=== PATIENT | male | born 1925 | race Caucasian/White ===

== ENCOUNTER → 2016-07-31 | Day surgery (SDC) | payer OTHER ==
[2016-07-30 15:14] VITALS: Ht 188 cm; Wt 78.6 kg
[~2016-07-31] VITALS: Ht 188 cm; Wt 78.6 kg
[~2016-07-31] MED LIST: ALLO1TAB51 PO; CALC500C73 PO; ETOMIDATE 2 MG/ML 20 ML VIAL IV ONE; FERR325T51 PO; FINA5TAB PO; FLM4 PO; FRS/40 PO; HYDR-4715 PO; LIDOCAINE HCL 2% 2 ML VIAL (20MG/ML) ONE; PANT40TA PO; PROP40TA5 PO; PROPOFOL IV EMULSION 10 MG/ML 20 ML VIAL IV ONE; SODIUM CHLORIDE 0.9% 500ML 500 ML IV ONE
--- NOTE | 2016-07-31 15:16 | Endo History and Physical ---
History & Physical Date of Service: Jul 31, 2016. Chief Complaint: anemia Referring Physician: Dr. 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) Hx Urinary Tract Surgery: No Family History None Social History Smoking Status: Never Smoker Hx Substance Use: No Hx Alcohol Use: No Allergies Coded Allergies: Adhesives (Verified Allergy, Intermediate, RASH WITH TAPE OTHER THAN PAPER , 07/30/16) WITH THE USE OF ANY TAPE OTHER THAN PAPER Statins (Verified Allergy, Unknown, Unknown, 07/30/16) Current Medications Reported Home Medications Medications Dose Route/Sig Max Daily Dose Days Date Category Propranolol Hcl 40 Mg Tab 1 Tab PO QAM 30 07/30/16 Reported Tamsulosin HCl 0.4 Mg Cap 1 Cap PO QAM 07/30/16 Reported Protonix (Pantoprazole Sodium) 40 Mg Tab 40 Mg PO QAM 07/30/16 Reported Apresoline (Hydralazine Hcl) 10 Mg Tab 20 Mg PO TID 07/30/16 Reported Lasix (Furosemide) 40 Mg Tab 40 Mg PO BID 07/30/16 Reported Proscar (Finasteride) 5 Mg Tab 5 Mg PO DAILY AFTERNOON 07/30/16 Reported Calcium (Calcium Carbonate) 500 Mg Chw 1 Tab PO QAM 07/30/16 Reported Iron Supplement (Ferrous Sulfate) 325 Mg Tab 325 Mg PO BID 30 12/06/15 Reported Allopurinol 100 Mg Tab 100 Mg PO QAM 10/08/14 Reported Vital Signs Weight (Kilograms): 78.64 Height (Feet): 6 Height (Inches): 2 Date Time Temp Pulse Resp B/P Pulse Ox O2 Delivery O2 Flow Rate FiO2 07/31/16 15:04 36.4 76 18 160/82 99 Room Air Physical Exam AAO x3 Nl s1s2 Lungs CTA Abd soft NT/ND + BS - CCE Assessment and Plan EGD/colon today
--- NOTE | 2016-07-31 16:23 | GI REPORT ---
Procedure Date: 07/31/2016 3:19 PM Procedure: Colonoscopy Indications: Hematochezia, Melena Medicines: Propofol per Anesthesia Complications: No immediate complications. Estimated blood loss: None. Estimated Blood Loss: Estimated blood loss: none. Procedure: Pre-Anesthesia Assessment: - Prior to the procedure, a History and Physical was performed, and patient medications and allergies were reviewed. The patient's tolerance of previous anesthesia was also reviewed. The risks and benefits of the procedure and the sedation options and risks were discussed with the patient. All questions were answered, and informed consent was obtained. Prior Anticoagulants: The patient has taken no previous anticoagulant or antiplatelet agents. ASA Grade Assessment: III - A patient with severe systemic disease. After reviewing the risks and benefits, the patient was deemed in satisfactory condition to undergo the procedure. After I obtained informed consent, the scope was passed under direct vision. Throughout the procedure, the patient's blood pressure, pulse, and oxygen saturations were monitored continuously. The scope was introduced through the anus and advanced to the terminal ileum, with identification of the appendiceal orifice and IC valve. The colonoscopy was performed without difficulty. The patient tolerated the procedure well. The quality of the bowel preparation was fair. Findings: The perianal and digital rectal examinations were normal. Pertinent negatives include normal sphincter tone, no palpable rectal lesions and no anal lesion or abnormality was detected. Many small-mouthed diverticula were found in the sigmoid colon. The terminal ileum appeared normal. The retroflexed view of the distal rectum and anal verge was normal and showed no anal or rectal abnormalities. Impression: - Diverticulosis in the sigmoid colon. - The examined portion of the ileum was normal. - The distal rectum and anal verge are normal on retroflexion view. - No specimens collected. Recommendation: - Discharge patient to home (ambulatory). - Resume previous diet. MD Yosef Melendez MD 07/31/2016 4:22:20 PM This report has been signed electronically. Note Initiated On: 07/31/2016 3:19 PM
--- NOTE | 2016-07-31 16:30 | Anesthesiology Progress Note ---
Anesthesia Post Op Note Date & Time Jul 31, 2016 at 16:29 Vital Signs Pain Intensity: 0 Vital Signs Past 12 Hours Date Time Temp Pulse Resp B/P Pulse Ox O2 Delivery O2 Flow Rate FiO2 07/31/16 16:10 73 20 139/63 99 Room Air 07/31/16 15:04 36.4 76 18 160/82 99 Room Air Notes Mental Status: alert / awake / arousable Nausea / Vomiting: adequately controlled Pain: adequately controlled Airway Patency, RR, SpO2: stable & adequate BP & HR: stable & adequate Hydration State: stable & adequate Anesthetic Complications: no major complications apparent
[2016-07-31 16:40] VITALS: BP 155/71; PULSE 81; O2SAT 99
--- NOTE | 2016-07-31 16:41 | Discharge Instructions ---
Endoscopy Patient Instructions Date / Procedure(s) Performed Jul 31, 2016. Colonoscopy, EGD Allergy Information Coded Allergies: Adhesives (Verified Allergy, Intermediate, RASH WITH TAPE OTHER THAN PAPER , 07/30/16) WITH THE USE OF ANY TAPE OTHER THAN PAPER Statins (Verified Allergy, Unknown, Unknown, 07/30/16) Discharge Date / Findings Jul 31, 2016. colon diverticulosis EGD with esophagitis/Hiatal hernia. SSBE and gastritis/duodenitis Medication Instructions Stopped Medication(s): stopped calcium Restart Stopped Medication(s): Reported Home Medications Medications Dose Route/Sig Max Daily Dose Days Date Category Propranolol Hcl 40 Mg Tab 1 Tab PO QAM 30 07/30/16 Reported Tamsulosin HCl 0.4 Mg Cap 1 Cap PO QAM 07/30/16 Reported Protonix (Pantoprazole Sodium) 40 Mg Tab 40 Mg PO QAM 07/30/16 Reported Apresoline (Hydralazine Hcl) 10 Mg Tab 20 Mg PO TID 07/30/16 Reported Lasix (Furosemide) 40 Mg Tab 40 Mg PO BID 07/30/16 Reported Proscar (Finasteride) 5 Mg Tab 5 Mg PO DAILY AFTERNOON 07/30/16 Reported Calcium (Calcium Carbonate) 500 Mg Chw 1 Tab PO QAM 07/30/16 Reported Iron Supplement (Ferrous Sulfate) 325 Mg Tab 325 Mg PO BID 30 12/06/15 Reported Allopurinol 100 Mg Tab 100 Mg PO QAM 10/08/14 Reported Reported Home Medications Medications Dose Route/Sig Max Daily Dose Days Date Category Propranolol Hcl 40 Mg Tab 1 Tab PO QAM 30 07/30/16 Reported Tamsulosin HCl 0.4 Mg Cap 1 Cap PO QAM 07/30/16 Reported Protonix (Pantoprazole Sodium) 40 Mg Tab 40 Mg PO QAM 07/30/16 Reported Apresoline (Hydralazine Hcl) 10 Mg Tab 20 Mg PO TID 07/30/16 Reported Lasix (Furosemide) 40 Mg Tab 40 Mg PO BID 07/30/16 Reported Proscar (Finasteride) 5 Mg Tab 5 Mg PO DAILY AFTERNOON 07/30/16 Reported Calcium (Calcium Carbonate) 500 Mg Chw 1 Tab PO QAM 07/30/16 Reported Iron Supplement (Ferrous Sulfate) 325 Mg Tab 325 Mg PO BID 30 12/06/15 Reported Allopurinol 100 Mg Tab 100 Mg PO QAM 10/08/14 Reported Prilosec 40mg daily 1/2 hr AC Provider Instructions Activity Restrictions - No exercising or heavy lifting for 24 hours. - Do not drink alcohol the day of the procedure. - Do not drive a car or operate machinery until the day after the procedure. - Do not make any important decisions or sign important papers in 24 hours after the procedure. Following Day: - Return to full activity which may include returning to work/school. Diet Start your diet with liquids and light foods (jello, soup, juice, toast). Then eat your usual diet if not nauseated. Treatment For Common After Affects For mild abdominal pain, bloating, or excessive gas: - Rest - Eat lightly - Lie on right side Follow-Up Information Follow-up with Dr. Youngblood as scheduled Anesthesia Information What You Should Know You have had a procedure that required some medicine to reduce anxiety and discomfort. This treatment is called moderate sedation. After receiving the treatment, you may be sleepy, but you will be able to breathe on your own. The effects of the treatment may last for several hours. Follow these instructions along with Activity/Diet recommendations noted above: * Do NOT do anything where dizziness or clumsiness would be dangerous. * Rest quietly at home today, then you can be up and about tomorrow. * Have a responsible person stay with you the rest of today. * You may have had an I.V. today. If so, you may take the dressing off later today. Recommendations Call your doctor if: * Trouble breathing * Continuous vomiting for more than 24 hours * Temperature above 101 degrees * Severe abdominal pain or bloating * Pain not relieved by pain medicine ordered * There is increased drainage or redness from any incision * A large amount of rectal bleeding greater than 2-3 tablespoons. (If you had a polyp/s removed or have hemorrhoids, a small amount of blood - from the rectum is to be expected.) * You have any unanswered questions or concerns. IN THE EVENT OF A SERIOUS EMERGENCY, GO TO THE NEAREST EMERGENCY ROOM Your discharge instructions were prepared by provider Yosef Morillo. Patient Instructions Signature Page Giorgio Lai Patient (or Guardian) Signature/Date: I have read and understand the instructions given to me by my caregivers. Caregiver/RN/Doctor Signature/Date: The above-named patient and/or guardian has received patient instructions on this date. + Original Patient Signature Page (only) stays with chart. Please make copy for patient.
== END | disposition home or self-care (01) ==
LOC: C.GI 14:33
PROVIDERS: ATTEND Internal Medicine Gastroenterology
DX: K92.1 Melena (principal); D64.9 Anemia, unspecified; K57.30 Diverticulosis of large intestine without perforation or abscess without bleeding; K21.0 Gastro-esophageal reflux disease with esophagitis; K29.70 Gastritis, unspecified, without bleeding; I25.10 Atherosclerotic heart disease of native coronary artery without angina pectoris; I50.9 Heart failure, unspecified; I12.9 Hypertensive chronic kidney disease with stage 1 through stage 4 chronic kidney disease, or unspecified chronic kidney disease; N18.9 Chronic kidney disease, unspecified; M19.90 Unspecified osteoarthritis, unspecified site; Z95.0 Presence of cardiac pacemaker; Z85.9 Personal history of malignant neoplasm, unspecified; Z95.2 Presence of prosthetic heart valve; Z90.89 Acquired absence of other organs; Z96.651 Presence of right artificial knee joint; Z89.022 Acquired absence of left finger(s); Z68.22 Body mass index [BMI] 22.0-22.9, adult